=== PATIENT | female | born 1995 | race Caucasian/White ===

== ENCOUNTER 2022-06-08 08:58 | Inpatient (IN) | payer MEDICAID ==
[2022-06-08] MEDS ORDERED: Calcium Carbonate 500 MG Tab.Chew PO PRN (09:48)
[2022-06-08] MEDS ORDERED: Lidocaine 1% 50 ML MDV INJECT ONE (09:48)
[2022-06-08] MEDS ORDERED: Ondansetron 4 MG Tab.DIS PO PRN (09:48)
[2022-06-08] MEDS ORDERED: Famotidine 20 MG Tab PO PRN (09:48)
[2022-06-08] MEDS ORDERED: Sodium Chloride 0.9% 10 ML Syringe FLUSH PRN (09:48)
[2022-06-08] MEDS: Misoprostol 25 MCG (1/4 of 100 MCG) Tab VAG SCH ×3 (11:07→19:30)
[2022-06-08] MEDS ORDERED: ePHEDrine 50 MG/ML SDV IVPUSH PRN ×2 (12:47→14:59)
[2022-06-08] MEDS ORDERED: fentaNYL 100 MCG/2 ML SDV EPIDUR PRN ×2 (12:47→14:59)
[2022-06-08] MEDS ORDERED: diphenhydrAMINE 50 MG/ML SDV IVPUSH PRN ×2 (12:47→14:59)
[2022-06-08] MEDS ORDERED: Bupivacaine/fentaNYL/NS 100 ML Bag EPIDUR PRN ×2 (12:47→14:59)
[2022-06-08] MEDS: Lactated Ringers 1,000 ML IV SCH (19:00)
[2022-06-08] MEDS ORDERED: metFORMIN 500 MG Tab PO ONE (20:15)
[2022-06-08] MEDS: Sodium Chloride 0.9% 10 ML Syringe FLUSH SCH (21:00)
[2022-06-09] MEDS: metFORMIN 500 MG Tab PO ONE ×2 (01:11→03:02)
[2022-06-09] MEDS ORDERED: Oxytocin/Lactated Ringers 10 UNIT/1,000 ML BAG IV SCH ×2 (01:30)
[2022-06-09] MEDS: Ondansetron 4 MG/2 ML SDV IVPUSH PRN ×3 (01:39→17:04)
[2022-06-09] MEDS: Nalbuphine 10 MG/0.5 ML Syringe IVPUSH PRN ×3 (02:50→07:26)
[2022-06-09] MEDS: Lactated Ringers 1,000 ML IV SCH ×3 (08:11→17:18)
[2022-06-09] MEDS ORDERED: Lidocaine 1% 50 ML MDV ONE (19:09)
[2022-06-09] MEDS ORDERED: Methylergonovine 0.2 MG/1 ML Amp IM PRN (19:17)
[2022-06-09] MEDS: Sodium Chloride 0.9% 10 ML Syringe FLUSH SCH (21:00)
[2022-06-09] MEDS ORDERED: Ibuprofen 600 MG Tab PO PRN (21:53)
[2022-06-09] MEDS ORDERED: Docusate Sodium 100 MG Cap PO PRN (21:53)
[2022-06-09] MEDS ORDERED: Benzocaine/Menthol 20%-0.5% Spray 78 GM Cannister TOP PRN (21:53)
[2022-06-09] MEDS ORDERED: Bupivacaine 0.25% 10 ML SDV ONE (22:00)
[2022-06-09] MEDS: Acetaminophen 325 MG Tab PO PRN (22:15)
[2022-06-09] MEDS: Witch Hazel Medicated Pads 40/Jar TOP PRN (22:25)
[2022-06-10] MEDS: Acetaminophen 325 MG Tab PO PRN ×3 (08:36→18:30)
[2022-06-10] MEDS: Sodium Chloride 0.9% 10 ML Syringe FLUSH SCH ×2 (11:26→21:00)
[2022-06-10] MEDS: Witch Hazel Medicated Pads 40/Jar TOP PRN (16:10)
[2022-06-10] MEDS ORDERED: Ondansetron 4 MG Tab.DIS PO PRN (16:29)
[2022-06-10] MEDS ORDERED: Hydrocortisone 1% Crm 30 GM Tube TOP ONE (19:20)
[2022-06-11] MEDS: Acetaminophen 325 MG Tab PO PRN ×2 (00:45→08:04)
== END 2022-06-11 11:10 | disposition home or self-care (01) | DRG 806 ==
LOC: JD.OB 08:58 → OBSVTOIN 18:54 → JD.OB 18:54
PROVIDERS: ADMIT Family Medicine; ATTEND Family Medicine
PROC: 10E0XZZ Delivery of Products of Conception, External Approach (ICD-10-PCS; principal; 2022-06-09)
PROC: 10907ZC Drainage of Amniotic Fluid, Therapeutic from Products of Conception, Via Natural or Artificial Opening (ICD-10-PCS; 2022-06-09)
PROC: 10H07YZ Insertion of Other Device into Products of Conception, Via Natural or Artificial Opening (ICD-10-PCS; 2022-06-09)
PROC: 3E0R3BZ Introduction of Anesthetic Agent into Spinal Canal, Percutaneous Approach (ICD-10-PCS; 2022-06-09)
PROC: 00HU33Z Insertion of Infusion Device into Spinal Canal, Percutaneous Approach (ICD-10-PCS; 2022-06-09)
PROC: 0HQ9XZZ Repair Perineum Skin, External Approach (ICD-10-PCS; 2022-06-09)
PROC: 3E033VJ Introduction of Other Hormone into Peripheral Vein, Percutaneous Approach (ICD-10-PCS; 2022-06-09)
PROC: 3E0P7VZ Introduction of Hormone into Female Reproductive, Via Natural or Artificial Opening (ICD-10-PCS; 2022-06-09)
DX: O24.415 Gestational diabetes mellitus in pregnancy, controlled by oral hypoglycemic drugs (principal); O72.1 Other immediate postpartum hemorrhage; Z37.0 Single live birth; O69.81X0 Labor and delivery complicated by cord around neck, without compression, not applicable or unspecified; O99.214 Obesity complicating childbirth; O70.0 First degree perineal laceration during delivery; O99.344 Other mental disorders complicating childbirth; O99.62 Diseases of the digestive system complicating childbirth; K21.9 Gastro-esophageal reflux disease without esophagitis; F41.9 Anxiety disorder, unspecified; O90.81 Anemia of the puerperium; D64.9 Anemia, unspecified; Z3A.39 39 weeks gestation of pregnancy
CPT/HCPCS: 36415; 51702; 59025; 59409; 85027; 86592; 86850; 86900; 86901; A9270-GY; C1726; J2001; J2210; J2300; J2405; J2590; J3010; J3490; J7120

== ENCOUNTER 2023-08-30 12:14 | Inpatient (IN) | payer MEDICAID ==
[2023-08-30] MEDS ORDERED: Calcium Carbonate 500 MG Tab.Chew PO PRN (14:30)
[2023-08-30] MEDS ORDERED: Nalbuphine 10 MG/ML Syringe IVPUSH PRN (14:30)
[2023-08-30] MEDS ORDERED: Oxytocin/Lactated Ringers 30 UNIT/500 ML BAG IV SCH (14:30)
[2023-08-30] MEDS ORDERED: Ondansetron 4 MG/2 ML SDV IVPUSH PRN (14:30)
[2023-08-30] MEDS ORDERED: Lidocaine 1% 50 ML MDV INJECT PRN (14:30)
[2023-08-30 15:00] LABS: BASOPHILS PERCENT AUTO 0.3 % (0.0-1.0); EOSINOPHILS PERCENT AUTO 0.3 % (0.0-6.0); HEMATOCRIT 38.2 % (37.0-47.0); HEMOGLOBIN 12.9 gm/dl (12.0-16.0); IMMATURE GRAN ABSOLUTE AUTO 0.02 K/mm3 (0.00-0.05); IMMATURE GRAN PERCENT AUTO 0.3 % (0.0-0.4); LYMPHOCYTES ABSOLUTE AUTO 1.1 K/mm3 (1.0-4.8); MEAN CORPUSCULAR HEMOGLOBIN 27.5 pg (28.0-32.0); MEAN CORPUSCULAR HGB CONC 33.8 g/dl (32.0-36.0); MEAN CORPUSCULAR VOLUME 81.4 fl (83.0-99.0); MEAN PLATELET VOLUME 11.7 fl (9.4-12.3); MONOCYTES ABSOLUTE AUTO 0.5 K/mm3 (0.0-0.8); MONOCYTES PERCENT AUTO 6.8 % (0.0-8.0); NEUTROPHILS ABSOLUTE AUTO 5.9 K/mm3 (1.8-7.7); NEUTROPHILS PERCENT AUTO 77.3 % (41.0-71.0); PLATELET COUNT,PLT 204 K/mm3 (150-400); RED BLOOD CELL COUNT 4.69 M/mm3 (4.10-5.30); WHITE BLOOD CELL COUNT,WBC 7.61 K/mm3 (3.9-11.3)
[2023-08-30] MEDS: Lactated Ringers 1,000 ML IV SCH (15:14)
[2023-08-30] MEDS: Oxytocin/Lactated Ringers 30 UNIT/500 ML BAG IV SCH (15:15)
[2023-08-30] MEDS ORDERED: ePHEDrine 50 MG/ML SDV IVPUSH PRN (16:08)
[2023-08-30] MEDS ORDERED: diphenhydrAMINE 50 MG/ML SDV IVPUSH PRN (16:08)
[2023-08-30] MEDS ORDERED: 50% Dextrose in Water 50 ML Syringe IVPUSH PRN (18:14)
[2023-08-30] MEDS ORDERED: Glucagon,Human Recombinant 1 MG Vial IM PRN (18:14)
[2023-08-30] MEDS: Insulin Lispro 100 Unit/ML 3 ML KwikPen SUBCUT ONE (18:44)
[2023-08-30] MEDS: fentaNYL 100 MCG/2 ML SDV EPIDUR PRN (20:40)
[2023-08-30] MEDS: Bupivacaine/fentaNYL/NS 100 ML Bag EPIDUR PRN (20:58)
[2023-08-31] MEDS ORDERED: Bupivacaine 0.25% 10 ML SDV ONE
[2023-08-31] MEDS ORDERED: Docusate Sodium 100 MG Cap PO PRN (02:54)
[2023-08-31] MEDS ORDERED: Famotidine 20 MG Tab PO PRN (02:54)
[2023-08-31 08:09] LABS: HEMATOCRIT 31.8 % (37.0-47.0); MEAN CORPUSCULAR HEMOGLOBIN 27.5 pg (28.0-32.0); MEAN CORPUSCULAR HGB CONC 33.6 g/dl (32.0-36.0); MEAN CORPUSCULAR VOLUME 81.7 fl (83.0-99.0); MEAN PLATELET VOLUME 11.8 fl (9.4-12.3); PLATELET COUNT,PLT 186 K/mm3 (150-400); RED BLOOD CELL COUNT 3.89 M/mm3 (4.10-5.30); WHITE BLOOD CELL COUNT,WBC 9.08 K/mm3 (3.9-11.3)
[2023-08-31 08:12] LABS: HEMOGLOBIN 10.7 gm/dl (12.0-16.0)
[2023-08-31] MEDS: Witch Hazel Medicated Pads 40/Jar TOP PRN (10:41)
[2023-08-31] MEDS: Benzocaine/Menthol 20%-0.5% Spray 78 GM Cannister TOP PRN (10:41)
[2023-08-31] MEDS: metFORMIN 500 MG Tab PO SCH (10:49)
[2023-08-31] MEDS: Prenatal Multivitamin with Calcium/Folic Acid/Iron Tab PO SCH (10:54)
[2023-08-31] MEDS: Ibuprofen 600 MG Tab PO SCH (10:55)
[2023-08-31] MEDS: Acetaminophen 325 MG Tab PO PRN (16:39)
== END 2023-09-01 12:40 | disposition home or self-care (01) | DRG 807 ==
LOC: JD.OBCHECK 12:14 → JD.OB 12:18 → JD.OBCHECK 14:44 → OBSVTOIN 08-31 01:38 → JD.OB 08-31 01:39
PROVIDERS: ADMIT Family Medicine; ATTEND Family Medicine
PROC: 10E0XZZ Delivery of Products of Conception, External Approach (ICD-10-PCS; principal; 2023-08-31)
PROC: 3E033VJ Introduction of Other Hormone into Peripheral Vein, Percutaneous Approach (ICD-10-PCS; 2023-08-31)
PROC: 3E0R3BZ Introduction of Anesthetic Agent into Spinal Canal, Percutaneous Approach (ICD-10-PCS; 2023-08-31)
PROC: 00HU33Z Insertion of Infusion Device into Spinal Canal, Percutaneous Approach (ICD-10-PCS; 2023-08-31)
DX: O42.02 Full-term premature rupture of membranes, onset of labor within 24 hours of rupture (principal); Z37.0 Single live birth; O24.424 Gestational diabetes mellitus in childbirth, insulin controlled; O99.214 Obesity complicating childbirth; O43.893 Other placental disorders, third trimester; O90.81 Anemia of the puerperium; O99.345 Other mental disorders complicating the puerperium; F41.9 Anxiety disorder, unspecified; Z3A.37 37 weeks gestation of pregnancy
CPT/HCPCS: 36415; 51701; 59025; 59409; 84112; 85025; 85027; 86592; 86850; 86900; 86901; A9270-GY; C1758; J0665; J1815; J3010; J3490; J7120; J7999